=== PATIENT | male | born 1960 | race Caucasian/White ===

== ENCOUNTER 2016-10-05 07:09 | Day surgery (SDC) | payer OTHER, MEDICARE ==
[~2016-10-05] VITALS: Ht 175.3 cm; Wt 89.0 kg
[~2016-10-05 07:09] MED LIST: PANT40TA5 PO
[2016-10-05 07:37] VITALS: BP 143/81
== END 2016-10-05 08:35 | disposition home or self-care (01) ==
LOC: OUT 07:09
PROVIDERS: ATTEND Surgery
DX: K62.89 Other specified diseases of anus and rectum (principal); E11.9 Type 2 diabetes mellitus without complications; Z85.048 Personal history of other malignant neoplasm of rectum, rectosigmoid junction, and anus; Z80.1 Family history of malignant neoplasm of trachea, bronchus and lung; F17.210 Nicotine dependence, cigarettes, uncomplicated; Z72.89 Other problems related to lifestyle; Z88.0 Allergy status to penicillin
CPT/HCPCS: 99152

== ENCOUNTER → 2016-10-19 | Outpatient (CLI) | payer OTHER, MEDICARE | END | disposition home or self-care (01) | LOC: STAR 08:27 | PROVIDERS: ATTEND Surgery | DX: Z02.9 Encounter for administrative examinations, unspecified (principal) ==

== ENCOUNTER 2016-11-08 07:49 | Day surgery (SDC) | payer OTHER, MEDICARE ==
[~2016-11-08] VITALS: Ht 175.3 cm; Wt 95.0 kg
[~2016-11-08 07:49] MED LIST changes: +BUPIVACAINE/PF-EPI 0.5% 1:200K ONE
[2016-11-08] MEDS ORDERED: LACTATED RINGERS 1,000 ML IV SCH (08:13)
[2016-11-08] MEDS ORDERED: MIDAZOLAM 1 MG/ML, 2ML ONE (08:21)
[2016-11-08] MEDS ORDERED: FENTANYL PF 250 MCG/5ML ONE (08:21)
[2016-11-08 08:39] VITALS: BP 132/85
[2016-11-08] MEDS ORDERED: ROCURONIUM 10 MG/ML ONE (09:37)
[2016-11-08] MEDS ORDERED: DEXAMETHASONE 4 MG/ML, 1ML ONE (09:37)
[2016-11-08] MEDS ORDERED: ONDANSETRON 2MG/ML, 2ML ONE (09:37)
[2016-11-08] MEDS ORDERED: PROPOFOL 10 MG/ML, 20ML ONE (09:37)
[2016-11-08] MEDS ORDERED: ACETAMINOPHEN 325 MG TABLET PO PRN (10:30)
[2016-11-08] MEDS ORDERED: OXYcodone 5 MG/5 ML ORAL.SOL UDC PO PRN (10:30)
[2016-11-08] MEDS ORDERED: LABETALOL 5MG/ML, 20ML IV PRN (10:30)
[2016-11-08] MEDS ORDERED: ONDANSETRON 2MG/ML, 2ML IVPush PRN ×2 (10:30→14:30)
[2016-11-08] MEDS ORDERED: hydrALAzine 20 MG/ML, 1ML IV PRN (10:30)
[2016-11-08] MEDS ORDERED: METOCLOPRAMIDE 5 MG/ML, 2ML IV PRN (10:30)
[2016-11-08] MEDS ORDERED: FENTANYL PF 100 MCG/2ML ONE (10:40)
[2016-11-08] MEDS ORDERED: ACETAMINOPHEN 325 MG TABLET ONE (10:40)
[2016-11-08] MEDS ORDERED: OXYcodone 5 MG/5 ML ORAL.SOL UDC ONE (10:41)
[2016-11-08] MEDS: FENTANYL PF 100 MCG/2ML IV PRN ×2 (10:45→10:55)
[2016-11-08] MEDS ORDERED: HYDROmorphone 2 MG/ML, 1ML ONE (11:06)
[2016-11-08] MEDS: HYDROmorphone 1 MG/ML, 1ML IV PRN ×2 (11:09→11:20)
== END 2016-11-08 14:20 | disposition home or self-care (01) ==
LOC: OUT 07:49
PROVIDERS: ATTEND Surgery
DX: D3A.026 Benign carcinoid tumor of the rectum (principal); F17.210 Nicotine dependence, cigarettes, uncomplicated; Z88.0 Allergy status to penicillin; E11.9 Type 2 diabetes mellitus without complications
CPT/HCPCS: 45172; 88304; 88305; 88341; 88342; 88360; J1100; J1170; J2250; J2405; J2704; J3010; J7120; G0461

== ENCOUNTER 2017-03-08 13:58 | Emergency (ER) | payer OTHER, MEDICARE ==
[~2017-03-08] VITALS: Ht 175.3 cm; Wt 91.5 kg
[~2017-03-08 13:58] MED LIST changes: -BUPIVACAINE/PF-EPI 0.5% 1:200K ONE
[2017-03-08 14:02] VITALS: BP 137/85
[2017-03-08] MEDS ORDERED: ACETAMINOPHEN 500 MG TABLET PO ONE (15:30)
[2017-03-08] MEDS ORDERED: ACETAMINOPHEN 500 MG TABLET ONE (15:37)
== END 2017-03-08 15:55 | disposition home or self-care (01) ==
LOC: ED 15:45
DX: S16.1XXA Strain of muscle, fascia and tendon at neck level, initial encounter (principal); S29.012A Strain of muscle and tendon of back wall of thorax, initial encounter; S49.92XA Unspecified injury of left shoulder and upper arm, initial encounter; Z88.0 Allergy status to penicillin; V43.52XA Car driver injured in collision with other type car in traffic accident, initial encounter; Y93.I9 Activity, other involving external motion; Y92.488 Other paved roadways as the place of occurrence of the external cause; Y99.8 Other external cause status
CPT/HCPCS: 72050; 72072; 99284

== ENCOUNTER 2017-04-10 08:01 | Day surgery (SDC) | payer OTHER, MEDICARE ==
[~2017-04-10] VITALS: Ht 175.3 cm; Wt 89.6 kg
[~2017-04-10 08:01] MED LIST changes: +BUPIVACAINE/PF 0.5% ONE; +EPINEPHRINE 1 MG/ML, 1ML ONE
[2017-04-10] MEDS ORDERED: LACTATED RINGERS 1,000 ML IV SCH ×2 (09:10→11:49)
[2017-04-10] MEDS ORDERED: DOCU-180 PO (09:12)
[2017-04-10 09:14] VITALS: BP 110/72
[2017-04-10] MEDS ORDERED: LIDOCAINE 1%, 2ML ONE (09:20)
[2017-04-10] MEDS ORDERED: MIDAZOLAM 1 MG/ML, 2ML ONE (09:26)
[2017-04-10] MEDS ORDERED: FENTANYL PF 100 MCG/2ML ONE ×3 (09:26→12:18)
[2017-04-10] MEDS ORDERED: LIDOCAINE 1%, 2ML SQ PRN (09:30)
[2017-04-10] MEDS ORDERED: PROPOFOL 10 MG/ML, 20ML ONE (10:37)
[2017-04-10] MEDS ORDERED: CEFAZOLIN 1,000 MG ONE ×2 (10:37)
[2017-04-10] MEDS ORDERED: SUCCINYLCHOLINE 20 MG/ML, 10ML ONE (10:37)
[2017-04-10] MEDS ORDERED: DEXAMETHASONE 4 MG/ML, 1ML ONE (10:40)
[2017-04-10] MEDS ORDERED: ONDANSETRON 2MG/ML, 2ML ONE (10:41)
[2017-04-10] MEDS ORDERED: ONDANSETRON 2MG/ML, 2ML IVPush PRN ×2 (11:00→12:00)
[2017-04-10] MEDS ORDERED: HYDROcodone/APAP 7.5-325MG/15ML UDC PO PRN (11:00)
[2017-04-10] MEDS ORDERED: PROMETHAZINE 25 MG/ML, 1ML IV PRN (11:00)
[2017-04-10] MEDS ORDERED: HYDROmorphone 1 MG/ML, 1ML IV PRN (11:00)
[2017-04-10] MEDS ORDERED: OXYcodone 5 MG/5 ML ORAL.SOL UDC PO PRN (11:00)
[2017-04-10] MEDS ORDERED: LABETALOL 5MG/ML, 20ML IV PRN (11:00)
[2017-04-10] MEDS ORDERED: FENTANYL PF 100 MCG/2ML IV PRN (11:00)
[2017-04-10] MEDS ORDERED: HYDROmorphone 1 MG/ML, 1ML ONE (11:08)
[2017-04-10] MEDS ORDERED: EPHEDRINE 50 MG/ML, 1ML ONE (11:24)
[2017-04-10] MEDS ORDERED: PROMETHAZINE 25 MG/ML, 1ML IM PRN (12:00)
[2017-04-10] MEDS ORDERED: HYDROmorphone 1 MG/ML, 1ML IVPush PRN (12:00)
[2017-04-10] MEDS ORDERED: HYDROmorphone 2MG TABLET PO PRN (12:00)
[2017-04-10] MEDS ORDERED: HYDROmorphone 2MG TABLET ONE (12:18)
[2017-04-10] MEDS ORDERED: KETOROLAC 30 MG/1 ML ONE (15:51)
== END 2017-04-10 14:30 ==
LOC: OUT 08:01
PROVIDERS: ATTEND Surgery
DX: K40.90 Unilateral inguinal hernia, without obstruction or gangrene, not specified as recurrent (principal); Z88.0 Allergy status to penicillin; Z88.8 Allergy status to other drugs, medicaments and biological substances
CPT/HCPCS: 49505; C1781; J0171; J0330; J0690; J1100; J1885; J2250; J2405; J2704; J3010; J3490; J7120; J1170